=== PATIENT | female | born 1960 | race Two or more races ===

== ENCOUNTER 2021-06-30 12:50 | Outpatient (CLI) | payer OTHER | END 2021-06-30 13:05 | disposition home or self-care (01) | LOC: PPH VACUNA 12:50 | PROVIDERS: ATTEND Emergency Medicine Pediatric Emergency Medicine | DX: Z23 Encounter for immunization (principal) ==

== ENCOUNTER 2022-03-05 08:10 | Outpatient (CLI) | payer OTHER | END 2022-03-05 08:20 | disposition home or self-care (01) | LOC: PPH VACUNA 08:10 | PROVIDERS: ATTEND Emergency Medicine Pediatric Emergency Medicine | DX: Z23 Encounter for immunization (principal) ==

== ENCOUNTER 2022-11-16 10:10 | Outpatient (CLI) | payer OTHER | END 2022-11-16 10:16 | disposition home or self-care (01) | LOC: PPH VACUNA 10:10 | PROVIDERS: ATTEND Emergency Medicine Pediatric Emergency Medicine | DX: Z23 Encounter for immunization (principal) ==